=== PATIENT | female | born 1955 | race Caucasian/White ===

== ENCOUNTER → 2018-03-18 | Outpatient (CLI) | payer SELFPAY ==
--- NOTE | 2018-03-18 10:55 | US ---
EXAMINATION TYPE: US abdomen complete DATE OF EXAM: 03/18/2018 COMPARISON: NONE CLINICAL HISTORY: R10.84 abdominal pain, R19.7 Diarrhea. GB removed 2003. Abdominal bloating with di scomfort. EXAM MEASUREMENTS: Liver Length: 17.8 cm CHD: 0.5 cm Spleen: 15.8 cm Right Kidney: 11.6 x 5.4 x 5.5 cm Left Kidney: 10.4 x 5.8 x 4.9 cm Pancreas: Appears echogenic. Body = 1.9 cm Liver: wnl Gallbladder: Surgically absent Evidence for sonographic Brown's sign: neg CBD: Obscured by overlying bowel gas CHD: wnl Spleen: Appears enlarged Right Kidney: wnl Left Kidney: wnl Upper IVC: wnl Abd Aorta: Portions obscured by overlying bowel gas The liver is homogenous. The intrahepatic portion of the IVC and proximal abdominal aorta are within normal limits. There is no evidence of cholelithiasis. Common bile duct is unremarkable. The visu alized portions of the pancreas are free of mass. Kidneys are symmetric and free of hydronephrosis. No renal lesions are seen. IMPRESSION: 1. Spleen is enlarged. 2. Otherwise grossly unremarkable study.
--- NOTE | 2018-03-18 11:03 | US ---
EXAMINATION TYPE: US pelvic complete DATE OF EXAM: 03/18/2018 COMPARISON: NONE CLINICAL HISTORY: Generalized pain, diarrhea. Discomfort. No spotting. [employer]. Hx of tubes tied. TECHNIQUE: Transabdominal (TA). Date of LMP: CHECK[employer], EXAM MEASUREMENTS: Uterus: 6.7 x 4.3 x 2.6 cm Endometrial Stripe: 0.2 cm Right Ovary: 2.3 x 1.7 x 1.5 cm Left Ovary: 2.2 x 1.9 x 1.5 cm 1. Uterus: Anteverted Heterogenous. 2. Endometrium: wnl 3. Right Ovary: wnl 4. Left Ovary: wnl 5. Bilateral Adnexa: wnl 6. Posterior cul-de-sac: no free fluid Cervix- wnl IMPRESSION: 1. No discrete abnormality identified.
== END | disposition home or self-care (01) ==
LOC: RADUSWWP 09:27
PROVIDERS: ATTEND Family Medicine
DX: R16.1 Splenomegaly, not elsewhere classified (principal); R19.7 Diarrhea, unspecified; R10.84 Generalized abdominal pain
CPT/HCPCS: 76700; 76856

== ENCOUNTER 2020-10-17 07:29 | Day surgery (SDC) | payer MEDICARE ==
[2020-10-14 14:28] VITALS: BMI 42.8
[~2020-10-17 07:29] MED LIST: LACTATED RINGERS 1,000 ML IV SCH
[2020-10-17 07:55] VITALS: RESP 16; TEMP 97.4
[2020-10-17] MEDS ORDERED: LIDOCAINE 1% (10MG/ML) FOR IV START INTRADERMA ONE (08:03)
[2020-10-17] MEDS ORDERED: GLYCOPYRROLATE 0.2 MG/ML 2 ML VIAL ONE (08:12)
[2020-10-17] MEDS ORDERED: PROPOFOL 10 MG/ML 20 ML VIAL IV ONE (08:12)
--- NOTE | 2020-10-17 09:04 | P.PCN ---
Date of Procedure: 10/17/20 Description of Procedure: BRIEF HISTORY: Patient is a 65-year-old female presenting for outpatient colonoscopy for screening for malignant neoplasm in the colon. No family history of colon cancer. No blood per rectum. Last colonoscopy 6 years ago. PROCEDURE PERFORMED: Colonoscopy with polypectomy. PREOPERATIVE DIAGNOSIS: Screening for malignant neoplasm of the colon, last colonoscopy 6 years ago. ESTIMATED BLOOD LOSS: Minimal. IV sedation per Anesthesia. PROCEDURE: After informed consent was obtained, the patient, was brought into the endoscopy unit. IV sedation was administered by Anesthesia under continuous monitoring. Digital rectal examination was normal. Initially the Olympus CF-190 flexible video colonoscope was then inserted in the rectum, gradually advanced into the cecum without any difficulty. Careful examination was performed as the scope was gradually being withdrawn. Ileocecal valve and the appendiceal orifice were visualized and appeared normal. Prep was fair with liquid stool throughout and stool balls likely secondary to diverticulosis. Mucosa of the cecum, ascending colon, transverse colon, descending colon, sigmoid colon, and rectum appeared normal. 2 diminutive polyps measuring 2-3 mm in size removed from ileocecal valve and ascending colon with cold forcep polypectomy. 3 sessile polyps removed with cold snare polypectomy from the hepatic flexure measuring 6 mm, from the sigmoid colon measuring 5 mm and from the rectum measuring 4 mm. Pedunculated splenic flexure polyp removed with hot snare polypectomy measuring 13 mm in size. Numerous small and large mouth diverticula noted in the left colon. Retroflexion was performed in the rectum and no lesions were seen. The patient tolerated the procedure well. IMPRESSION: Pedunculated splenic flexure polyp removed with hot snare polypectomy. Cold snare polypectomy of medium-sized polyps from the hepatic flexure, sigmoid and rectum. Diminutive polyps removed with cold forcep polypectomy from the ileocecal valve and ascending colon. Severe left colonic diverticulosis. RECOMMENDATIONS: Findings of this examination were discussed with the patient and her family. Okay to resume diet, recommend fiber supplementation. Okay to resume medications. Await pathology from polypectomy. Recommend repeat colonoscopy in 1 year due to poor prep and high-risk colon polyp.
[2020-10-17 09:29] VITALS: BP 113/73; PULSE 69
== END 2020-10-17 09:45 | disposition home or self-care (01) ==
LOC: ORWHC2ENDO 07:29
PROVIDERS: ATTEND Internal Medicine
DX: Z12.11 Encounter for screening for malignant neoplasm of colon (principal); D12.2 Benign neoplasm of ascending colon; D12.3 Benign neoplasm of transverse colon; K57.30 Diverticulosis of large intestine without perforation or abscess without bleeding; Z90.49 Acquired absence of other specified parts of digestive tract; Z98.51 Tubal ligation status; E66.01 Morbid (severe) obesity due to excess calories; Z68.41 Body mass index [BMI] 40.0-44.9, adult; Z98.890 Other specified postprocedural states; F32.9 Major depressive disorder, single episode, unspecified; Z79.1 Long term (current) use of non-steroidal anti-inflammatories (NSAID); Z79.899 Other long term (current) drug therapy; Z88.0 Allergy status to penicillin; Z88.2 Allergy status to sulfonamides
CPT/HCPCS: 88305; 45380; 45385; J2704

== ENCOUNTER → 2021-02-05 | Outpatient (CLI) | payer MEDICARE ==
--- NOTE | 2021-02-05 15:05 | XR ---
EXAMINATION TYPE: XR shoulder complete RT DATE OF EXAM: 02/05/2021 COMPARISON: NONE HISTORY: Pain TECHNIQUE: Shoulder examined in 3 views FINDINGS: The humeral head articulates with the glenoid. The acromio-clavicular junction is normal. No acute fractures or dislocations are evident. A follow up study can be performed 7-10 days from acute trauma for continued pain. IMPRESSION: 1. Normal three-view right Shoulder
== END | disposition home or self-care (01) ==
LOC: RADXRYALE 14:28
PROVIDERS: ATTEND Family Medicine
DX: M25.511 Pain in right shoulder (principal); M79.621 Pain in right upper arm

== ENCOUNTER → 2022-04-08 | Outpatient (CLI) | payer MEDICARE ==
[~2022-04-08] MED LIST changes: -LACTATED RINGERS 1,000 ML IV SCH; +TIXAGEVIMAB/CILGAVIMAB (EUA) 300 MG/3 ML COMBO.PKG IM NR
[2022-04-08 11:06] VITALS: RESP 16; TEMP 98
[2022-04-08 11:56] VITALS: BP 108/64; PULSE 73
== END ==
LOC: PROCWHC3 10:50
PROVIDERS: ATTEND Internal Medicine Hematology & Oncology
DX: C91.10 Chronic lymphocytic leukemia of B-cell type not having achieved remission (principal); Z23 Encounter for immunization; Z88.0 Allergy status to penicillin; Z88.2 Allergy status to sulfonamides
CPT/HCPCS: Q0220; M0220

== ENCOUNTER 2023-07-11 08:35 | Emergency (ER) | payer MEDICARE ==
[2023-07-11] MEDS ORDERED: KETOROLAC 15 MG/ML 1 ML VIAL IVP STA (08:58)
[2023-07-11] MEDS ORDERED: SODIUM CHLORIDE 0.9% 500 ML 500 ML IV STA (08:58)
--- NOTE | 2023-07-11 09:04 | ED ---
Abdominal Pain HPI - General Chief Complaint: Abdominal Pain Stated Complaint: Abd Pain Time Seen by Provider: 07/11/23 08:49 Source: patient, RN notes reviewed, old records reviewed Mode of arrival: ambulatory Limitations: no limitations - History of Present Illness Initial Comments: 68-year-old female presents to the emergency room with complaints of left upper quadrant abdominal pain since Wednesday. Has not had a bowel movement in 4 days. Last bowel movement was Wednesday. She did see her primary care doctor on Wednesday and was diagnosed with shingles, rash to back left side and prescribed gabapentin and acyclovir. Patient continues to have pain left upper quadrant. Denies fevers. No shortness of breath or chest pain. She is concerned with a bowel obstruction however states is passing gas. Patient does have a history of cholecystectomy, CLL MD Complaint: abdominal pain (LUQ) -: days(s) (7) Location: LUQ Radiation: back Severity scale (1-10): 10 Quality: stabbing, sharp Consistency: intermittent Context: other (dx shingles left back thoracic Wednesday started acyclovir and gabapentin) Associated Symptoms: constipation - Related Data Home Medications Medication Instructions Recorded Confirmed Cholecalciferol [Vitamin D3 (25 2,000 unit PO DAILY 10/14/20 10/17/20 Mcg = 1000 Iu)] Citalopram Hydrobromide 40 mg PO DAILY 10/14/20 10/17/20 [Citalopram HBr] Multivitamins, Thera [Multivitamin 1 tab PO DAILY 10/14/20 10/17/20 (formulary)] Naproxen Sodium [Aleve] 220 mg PO DAILY 10/14/20 10/17/20 Allergies Allergy/AdvReac Type Severity Reaction Status Date / Time Penicillins Allergy Rash/Hives Verified 07/11/23 08:44 Sulfa (Sulfonamide Allergy Nausea & Verified 07/11/23 08:44 Antibiotics) Vomiting Review of Systems ROS Statement: Those systems with pertinent positive or pertinent negative responses have been documented in the HPI. ROS Other: All systems not noted in ROS Statement are negative. Past Medical History Past Medical History: Cancer Additional Past Medical History / Comment(s): diverticulosis. chronic lymphocytic leukemia dx [address] patel History of Any Multi-Drug Resistant Organisms: None Reported Past Surgical History: Back Surgery, Cholecystectomy, Tubal Ligation Past Anesthesia/Blood Transfusion Reactions: Postoperative Nausea & Vomiting (PONV) Additional Past Anesthesia/Blood Transfusion Reaction / Comment(s): positional vertigo Past Psychological History: Depression Smoking Status: Former smoker Past Alcohol Use History: None Reported Past Drug Use History: Marijuana General Exam Limitations: no limitations General appearance: alert, in no apparent distress Head exam: Present: atraumatic Eye exam: Present: normal appearance. Absent: scleral icterus, conjunctival injection, periorbital swelling Neck exam: Present: full ROM Respiratory exam: Present: normal lung sounds bilaterally. Absent: respiratory distress, accessory muscle use Cardiovascular Exam: Present: regular rate, normal rhythm GI/Abdominal exam: Present: soft, normal bowel sounds. Absent: distended, tenderness, guarding, rebound, rigid Extremities exam: Present: full ROM, normal capillary refill. Absent: pedal edema Back exam: Present: full ROM, rash noted (Vesicular rash left thoracic appro ximately 2 cm x 2 cm). Absent: paraspinal tenderness, vertebral tenderness Neurological exam: Present: alert, oriented X3, normal gait Psychiatric exam: Present: normal affect, normal mood Skin exam: Present: warm, dry, normal color. Absent: cyanosis, diaphoretic, petechiae, pallor Course Vital Signs 07/11/23 07/11/23 08:41 12:01 Temperature 98.9 F 97.9 F Pulse Rate 79 82 Respiratory 20 18 Rate Blood Pressure 139/65 140/88 O2 Sat by Pulse 95 99 Oximetry Medical Decision Making - Medical Decision Making Was pt. sent in by a medical professional or institution (, PA, TECHNOLOGY SPECIALIST, urgent care, hospital, or snf...) When possible be specific @ -No Did you speak to anyone other than the patient for history (EMS, parent, family, police, friend...)? What history was obtained from this source @ -No Did you review nursing and triage notes (agree or disagree)? Why? @ -I reviewed and agree with nursing and triage notes Were old charts reviewed (outside hosp., previous admission, EMS record, old EKG, old radiological studies, urgent care reports/EKG's, snf records)? Report findings @ -No old charts were reviewed Differential Diagnosis (chest pain, altered mental status, abdominal pain women, abdominal pain men, vaginal bleeding, weakness, fever, dyspnea, syncope, headache, dizziness, GI bleed, back pain, seizure, CVA, palpatations, mental health, musculoskeletal)? @ -Differential Abdominal Pain Women: Appendicitis, Cholecystitis, diverticulosis, ischemic bowel, pancreatitis, hepat itis, UTI, gastroenteritis, AAA, incarcerated hernia, bowel obstruction, constipation, inflammatory bowel, hepatitis, peptic ulcer disease, splenic infarction, perforated viscus, vulvitis, ovarian torsion, PID, kidney stone, placenta abruption, this is not meant to be an all-inclusive list EKG interpreted by me (3pts min.). @ -n/a X-rays interpreted by me (1pt min.). @ -yes X-ray KUB interpreted by me shows no evidence of obstruction, no free air. CT interpreted by me (1pt min.). @ -No CT the abdomen shows moderate sigmoid diverticulosis without diverticulitis. Splenomegaly. U/S interpreted by me (1pt. min.). @ -None done What testing was considered but not performed or refused? (CT, X-rays, U/S, labs)? Why? @ -None What meds were considered but not given or refused? Why? @ -None Did you discuss the management of the patient with other professionals (professionals i.e. , PA, TECHNOLOGY SPECIALIST, lab, RT, psych nurse, social work assistant, automotive engineering technician, t eacher, property officer, director of casework)? Give summary @ -No Was smoking cessation discussed for >3mins.? @ -No Was critical care preformed (if so, how long)? @ -No Were there social determinants of health that impacted care today? How? (Homelessness, low income, unemployed, alcoholism, drug addiction, transportation, low edu. Level, literacy, decrease access to med. care, group home, rehab)? @ -No Was there de-escalation of care discussed even if they declined (Discuss DNR or withdrawal of care, Hospice)? DNR status @ -No What co-morbidities impacted this encounter? (DM, HTN, Smoking, COPD, CAD, Cancer, CVA, ARF, Chemo, Hep., AIDS, mental health diagnosis, sleep apnea, morbid obesity)? @ -Patient has a history of CLL in [address] Patel Also has a history of diverticulosis, surgical history of cholecystectomy, back surgery Was patient admitted / discharged? Hospital course, mention meds given and route, prescriptions, significant lab abnormalities, going to OR and other pertinent info. @ -Discharged 68-year-old female presents to the emergency room with complaints of left upper quadrant abdominal pain since Wednesday. Has not had a bowel movement in 4 days. Last bowel movement was Wednesday. She did see her primary care doctor on Wednesday and was diagnosed with shingles, rash to back left side and prescribed gabapentin and acyclovir. Patient continues to have pain left upper quadrant. Denies fevers. No shortness of breath or chest pain. She is concerned with a bowel obstruction however states is passing gas. Patient does have a history of cholecystectomy, CLL On physical exam abdomen is soft. Bowel sounds are present. Vesicular rash approximate 2 x 2 centimeter area on the left flank. Lungs sounds are clear to auscultation. Vital signs are stable. X-ray KUB interpreted by me shows no evidence of obstruction, no free air. Radiologist interpretation overall nonobstructive bowel gas pattern. Gas and fecal matter seen in the nondistended colon. EKG interpreted by me shows sinus rhythm with a ventricular rate of 63, MN interval 0.153, QRS 0.100, QTC 0.418, normal axis White blood cell count 22.1, patient is a history of CLL. No concerning values in electrolytes. Troponin -0.012, lactic acid 0.8. Patient had resolution of her pain with Toradol. Her pain may be related to neuralgia from shingles. Directed to continue taking her gabapentin and acyclovir. Follow up with her primary care doctor this week. She is agreeable to this plan of care. Case discussed with Dr. Rausch Undiagnosed new problem with uncertain prognosis? @ -No Drug Therapy requiring intensive monitoring for toxicity (Heparin, Nitro, Insulin, Cardizem)? @ -No Were any procedures done? @ -No Diagnosis/symptom? @ -Abdominal pain, shingles Acute, or Chronic, or Acute on Chronic? @ -Acute Uncomplicated (without systemic symptoms) or Complicated (systemic symptoms)? @ -uncomplicated Side effects of treatment? @ -No Exacerbation, Progression, or Severe Exacerbation? @ -No Poses a threat to life or bodily function? How? (Chest pain, USA, MT, pneumonia, PE, COPD, DKA, ARF, appy, cholecystitis, CVA, Diverticulitis, Homicidal, Suicidal, threat to staff... and all critical care pts) @ -No - Lab Data Result diagrams: 07/11/23 09:19 07/11/23 09:19 Lab Results 07/11/23 07/11/23 07/11/23 Range/Units 09:19 09:19 09:19 WBC 22.1 H (3.8-10.6) k/uL RBC 5.12 (3.80-5.40) m/uL Hgb 14.4 (11.4-16.0) gm/dL Hct 44.2 (34.0-46.0) % MCV 86.4 (80.0-100.0) fL MCH 28.1 (25.0-35.0) pg MCHC 32.5 (31.0-37.0) g/dL RDW 15.7 H (11.5-15.5) % Plt Count 185 (150-450) k/uL MPV 7.4 Neutrophils % 17 % Lymphocytes % 77 % Monocytes % 2 % Eosinophils % 1 % Basophils % 1 % Neutrophils # 3.8 (1.3-7.7) k/uL Lymphocytes # 17.1 H (1.0-4.8) k/uL Monocytes # 0.3 (0-1.0) k/uL Eosinophils # 0.2 (0-0.7) k/uL Basophils # 0.1 (0-0.2) k/uL Manual Slide Review Performed Reactive Lymphocytes Present PT 9.9 (9.0-12.0) sec INR 0.9 (<1.2) APTT 25.4 (22.0-30.0) sec Sodium 139 (137-145) mmol/L Potassium 4.2 (3.5-5.1) mmol/L Chloride 108 H (98-107) mmol/L Carbon Dioxide 21 L (22-30) mmol/L Anion Gap 10 mmol/L BUN 23 H (7-17) mg/dL Creatinine 0.75 (0.52-1.04) mg/dL Est GFR (CKD-EPI)AfAm >90 (>60 ml/min/1.73 sqM) Est GFR (CKD-EPI)NonAf 82 (>60 ml/min/1.73 sqM) Glucose 110 H (74-99) mg/dL Plasma Lactic Acid Jc (0.7-2.0) mmol/L Calcium 9.7 (8.4-10.2) mg/dL Total Bilirubin 0.6 (0.2-1.3) mg/dL AST 21 (14-36) U/L ALT 21 (4-34) U/L Alkaline Phosphatase 66 (38-126) U/L Troponin I (0.000-0.034) ng/mL Total Protein 6.6 (6.3-8.2) g/dL Albumin 4.6 (3.5-5.0) g/dL Amylase 55 (30-110) U/L Lipase 89 (23-300) U/L 07/11/23 07/11/23 Range/Units 09:19 09:19 WBC (3.8-10.6) k/uL RBC (3.80-5.40) m/uL Hgb (11.4-16.0) gm/dL Hct (34.0-46.0) % MCV (80.0-100.0) fL MCH (25.0-35.0) pg MCHC (31.0-37.0) g/dL RDW (11.5-15.5) % Plt Count (150-450) k/uL MPV Neutrophils % % Lymphocytes % % Monocytes % % Eosinophils % % Basophils % % Neutrophils # (1.3-7.7) k/uL Lymphocytes # (1.0-4.8) k/uL Monocytes # (0-1.0) k/uL Eosinophils # (0-0.7) k/uL Basophils # (0-0.2) k/uL Manual Slide Review Reactive Lymphocytes PT (9.0-12.0) sec INR (<1.2) APTT (22.0-30.0) sec Sodium (137-145) mmol/L Potassium (3.5-5.1) mmol/L Chloride (98-107) mmol/L Carbon Dioxide (22-30) mmol/L Anion Gap mmol/L BUN (7-17) mg/dL Creatinine (0.52-1.04) mg/dL Est GFR (CKD-EPI)AfAm (>60 ml/min/1.73 sqM) Est GFR (CKD-EPI)NonAf (>60 ml/min/1.73 sqM) Glucose (74-99) mg/dL Plasma Lactic Acid Jc 0.8 (0.7-2.0) mmol/L Calcium (8.4-10.2) mg/dL Total Bilirubin (0.2-1.3) mg/dL AST (14-36) U/L ALT (4-34) U/L Alkaline Phosphatase (38-126) U/L Troponin I <0.012 (0.000-0.034) ng/mL Total Protein (6.3-8.2) g/dL Albumin (3.5-5.0) g/dL Amylase (30-110) U/L Lipase (23-300) U/L - EKG Data -: EKG Interpreted by Wi EKG shows normal: sinus rhythm (EKG interpreted by me shows sinus rhythm with a ventricular rate of 63, MN interval 0.153, QRS 0.100, QTC 0.418, normal axis) Disposition Clinical Impression: Abdominal pain, Shingles outbreak Disposition: HOME SELF-CARE Condition: Good Instructions (If sedation given, give patient instructions): Shingles (ED), Abdominal Pain (ED) Additional Instructions: Continue your previously prescribed medications for shingles. Follow-up with your primary care doctor this week. Return to the emergency room with any new or concerning symptoms. Is patient prescribed a controlled substance at d/c from ED?: No Referrals: Stefan Valdes DO [Primary Care Provider] - 1-2 days Time of Disposition: 11:38
--- NOTE | 2023-07-11 09:37 | XR ---
EXAMINATION TYPE: XR KUB DATE OF EXAM: 07/11/2023 COMPARISON: NONE HISTORY: Pain TECHNIQUE: Single supine KUB image of the abdomen is obtained FINDINGS: Small bowel demonstrates no evidence for dilatation or air fluid levels. Gas and fecal material is seen in non-distended colon. No convincing evidence for pneumoperitoneum. No unusual calcifications. The lung bases are clear. The osseous structures are intact. IMPRESSION: 1. Overall nonobstructive bowel gas pattern.
[2023-07-11 09:44] LABS: ALT 21 U/L (4-34); AST 21 U/L (14-36); African American GFR (CKD) >90 (>60 ml/min/1.73 sqM); Albumin 4.6 g/dL (3.5-5.0); Alkaline Phosphatase 66 U/L (38-126); Amylase 55 U/L (30-110); Anion Gap 10 mmol/L; Blood Urea Nitrogen 23 mg/dL (7-17); Calcium 9.7 mg/dL (8.4-10.2); Carbon Dioxide 21 mmol/L (22-30); Chloride 108 mmol/L (98-107); Glucose 110 mg/dL (74-99); Lipase 89 U/L (23-300); Non-African American GFR(CKD) 82 (>60 ml/min/1.73 sqM); Potassium 4.2 mmol/L (3.5-5.1); Sodium 139 mmol/L (137-145); Total Bilirubin 0.6 mg/dL (0.2-1.3); Total Protein 6.6 g/dL (6.3-8.2)
[2023-07-11 09:47] LABS: Basophils # (A) 0.1 k/uL (0-0.2); Basophils % (A) 1 %; Eosinophils # (A) 0.2 k/uL (0-0.7); Eosinophils % (A) 1 %; HCT 44.2 % (34.0-46.0); HGB 14.4 gm/dL (11.4-16.0); Lymphocytes % (A) 77 %; MCH 28.1 pg (25.0-35.0); MCHC 32.5 g/dL (31.0-37.0); MCV 86.4 fL (80.0-100.0); Mean Platelet Volume 7.4; Monocytes # (A) 0.3 k/uL (0-1.0); Monocytes % (A) 2 %; Neutrophils # (A) 3.8 k/uL (1.3-7.7); Neutrophils % (A) 17 %; Platelet Count 185 k/uL (150-450); RBC 5.12 m/uL (3.80-5.40); RDW 15.7 % (11.5-15.5); WBC 22.1 k/uL (3.8-10.6)
[2023-07-11 09:48] LABS: INR 0.9 (<1.2); Lymphocytes # (A) 17.1 k/uL (1.0-4.8); Partial Thromboplastin Time 25.4 sec (22.0-30.0); Prothrombin Time 9.9 sec (9.0-12.0)
--- NOTE | 2023-07-11 11:12 | CT ---
EXAMINATION TYPE: CT abdomen pelvis w con DATE OF EXAM: 07/11/2023 COMPARISON: HISTORY: Left upper quadrant pain CT DLP: 2355 mGycm CONTRAST: CT scan of the abdomen and pelvis is performed without Oral Contrast and with IV Contrast, patient in jected with 100 mL of Isovue 300. FINDINGS: LUNG BASES-: No visible nodule. No infiltrate. LIVER/GB: Gallbladder is surgically absent. There is mild hepatic steatosis suggested. No space occup jameson hepatic lesion. Biliary tree is of normal caliber. PANCREAS: No inflammation. No distinct mass. SPLEEN: There is evidence of splenomegaly measuring 15.9 cm craniocaudal dimension. No lesion seen. ADRENALS: No nodule. No thickening. KIDNEYS/BLADDER: No hydronephrosis. No nephrolithiasis. No distinct renal mass. Urinary bladder g rossly unremarkable. BOWEL: Normal appendix. Normal bowel caliber. No inflammation. Moderate sigmoid diverticulosis with out diverticulitis. GENITAL ORGANS: No gross abnormality. LYMPH NODES: No greater than 1cm abdominal or pelvic lymph nodes are appreciated. AORTA: No significant abnormality. OSSEOUS STRUCTURES: No significant abnormality is seen. OTHER: Small fat-containing umbilical hernia. IMPRESSION: 1. Moderate sigmoid diverticulosis without diverticulitis. 2. Splenomegaly.
[2023-07-11 11:40] LABS: Reactive Lymphocytes Present
[2023-07-11 12:02] VITALS: BP 140/88; PULSE 82; RESP 18; TEMP 97.9
== END 2023-07-11 12:02 | disposition home or self-care (01) ==
LOC: EC 08:35
DX: K57.30 Diverticulosis of large intestine without perforation or abscess without bleeding (principal); B02.9 Zoster without complications; F32.A Depression, unspecified; F12.90 Cannabis use, unspecified, uncomplicated; Z88.0 Allergy status to penicillin; Z88.2 Allergy status to sulfonamides; Z79.899 Other long term (current) drug therapy; Z90.49 Acquired absence of other specified parts of digestive tract; Z87.891 Personal history of nicotine dependence
CPT/HCPCS: 36415; 93005; 80053; 82150; 83605; 83690; 84484; 85025; 85610; 85730; 74018; 74177; 99284; 96374; 96361; J1885; Q9967

== ENCOUNTER → 2023-09-17 | Outpatient (CLI) | payer MEDICARE ==
--- NOTE | 2023-09-17 16:05 | US ---
EXAMINATION TYPE: US thyroid st tissue head/neck DATE OF EXAM: 09/17/2023 COMPARISON: NONE CLINICAL INDICATION: Female, 68 years old with history of E04.1 NONTOXIC SINGLE THYROID NODULE; Pt st ates DrLin felt neck enlarged GLAND SIZE: Right Lobe: 7.4 x 2.9 x 3.5 cm Overall Parenchyma: heterogenous Left Lobe: 5.9 x 1.7 x 2.3 cm Overall Parenchyma: homogeneous Isthmus Thickness: 0.5 cm NODULES RIGHT: # of nodules measured on right: 2 1. 4.8 X 2.9 x 2.9 cm, lower, solid or almost completely solid, isoechoic nodule, which is wider th an tall, with smooth margins, without echogenic foci. TR 3 Prior size: No prior 2. 0.9 X 0.7 x 1.0 cm, upper, solid or almost completely solid, hypoechoic nodule, which is wider t simeon tall, with smooth margins, without echogenic foci. Prior size: No prior LEFT: # of nodules measured on left: 1 1. 1.3 X 0.9 x 0.9 cm, lower, solid or almost completely solid, hypoechoic nodule, which is wider t simeon tall, with smooth margins, without echogenic foci. Prior size: No prior ISTHMUS: # of nodules measured in the isthmus: 0 Bilateral neck scanned, no evidence of lymphadenopathy. Multiple nodules bilaterally- two nodules ri ght lobe and multiple nodules scattered throughout left lobe- the largest nodule was measured. IMPRESSION: 1. Multiple bilateral thyroid nodules. 2. Largest nodule on the right considered mildly suspicious. Fine needle aspiration can be performed. 2017 ACR TI-RADS LEVEL: TR-RADS 3 - Mildly Suspicious: Follow if > 1.5 cm, FNA if > 2.5 cm *Highest TI-RADS level nodule reported
== END | disposition home or self-care (01) ==
LOC: RADUSWWP 14:21
PROVIDERS: ATTEND Otolaryngology
DX: E04.2 Nontoxic multinodular goiter (principal)
CPT/HCPCS: 76536

== ENCOUNTER 2023-12-01 12:57 | Day surgery (SDC) | payer MEDICARE ==
[2023-12-01 13:46] VITALS: RESP 16; TEMP 98.5
--- NOTE | 2023-12-01 14:27 | US ---
ULTRASOUND GUIDED FNA THYROID BIOPSY: CLINICAL HISTORY: Right thyroid nodule FINDINGS: The procedure was explained to the patient. The risks, complications, benefits and alternatives were discussed and any questions were answered. Informed consent was obtained. Patient was placed supin e on the ultrasound table and prepped and draped in the usual sterile fashion. Utilizing a 25 gauge needle, five passes were made into the requested right thyroid nodule. Patient was stable throughout the procedure. Pathology is pending. All elements of maximal barrier technique were utilized. IMPRESSION: 1. Successful ultrasound guided FNA thyroid biopsy.
[2023-12-01 14:36] VITALS: BP 123/63; PULSE 65
== END 2023-12-01 14:20 | disposition home or self-care (01) ==
LOC: RADPROMAIN 12:57
PROVIDERS: ATTEND Otolaryngology
DX: E04.1 Nontoxic single thyroid nodule (principal); C91.90 Lymphoid leukemia, unspecified not having achieved remission
CPT/HCPCS: 10005; 88173; 88305

== ENCOUNTER → 2023-12-01 | Outpatient (CLI) | payer MEDICARE ==
[2023-12-01 17:06] LABS: T4, Free (Free Thyroxine) 1.17 ng/dL (0.78-2.19)
== END | disposition home or self-care (01) ==
LOC: LABWHC1 14:37
PROVIDERS: ATTEND Otolaryngology
DX: E04.1 Nontoxic single thyroid nodule (principal)
CPT/HCPCS: 36415; 84439; 84443; 86376

== ENCOUNTER → 2024-02-09 | Outpatient (CLI) | payer MEDICARE ==
--- NOTE | 2024-02-09 21:17 | US ---
EXAMINATION TYPE: US kidneys/renal and bladder DATE OF EXAM: 02/09/2024 COMPARISON: CT 2022 CLINICAL INDICATION: Female, 68 years old with history of R31.1 HEMATURIA; Frequent UTI's EXAM MEASUREMENTS: Right Kidney: 11.4 x 4.8 x 5.8 cm Left Kidney: 11.8 x 5.1 x 5.9 cm Right Kidney: No hydronephrosis or masses seen Left Kidney: No hydronephrosis or masses seen Bladder: wnl Bilateral Jets seen: Yes IMPRESSION: No acute renal ultrasound abnormality.
== END | disposition home or self-care (01) ==
LOC: RADUSWWP 14:18
PROVIDERS: ATTEND Urology
DX: R31.1 Benign essential microscopic hematuria (principal); N39.0 Urinary tract infection, site not specified
CPT/HCPCS: 76770

== ENCOUNTER → 2024-09-19 | Outpatient (CLI) | payer MEDICARE ==
--- NOTE | 2024-09-20 15:50 | MM ---
Reason for Exam: Screening (asymptomatic). Patient History: Menarche at age 14. First Full-Term at age 25. Postmenopausal. Other cancer, age 54. Risk Values: Radha 5 year model risk: 1.7%. NCI Lifetime model risk: 5.1%. Prior Study Comparison: No prior studies available for comparison. Tissue Density: There are scattered areas of fibroglandular density. Findings: Analyzed By CAD. The pattern is symmetrical. There may be some chronic nodularity within the posterior right breast. Additional evaluation recommended with right breast diagnostic mammography. Left breast:No suspicious groups of microcalcifications, spiculated or lobular masses, architectural distortion or other secondary signs of malignancy are mammographically apparent. Overall Assessment: Incomplete: need additional imaging evaluation, BI-RAD 0 Management: Diagnostic Mammogram of the right breast. A negative mammogram report should not preclude additional follow up of suspicious palpable abnormalities. Patient should continue monthly self breast exam. A clinical breast exam by your physician is recommended on an annual basis and results should be correlated with mammographic findings. Note on Radha scores and lifetime risk: 1. A Radha score greater than 3% is considered moderate risk. If this is the case, consider specialist referral to assess eligibility for a risk reducing agent. 2. If overall lifetime risk for the development of breast cancer is 20% or higher, the patient may qualify for future screening with alternating mammogram and breast MRI. [facility], , 09/20/2024 3:46 PM. Electronically signed and approved by: Abrahan Camara D.O. Radiologis
== END | disposition home or self-care (01) ==
LOC: RADMAMWWP 14:43
PROVIDERS: ATTEND Family Medicine
DX: Z12.31 Encounter for screening mammogram for malignant neoplasm of breast (principal); R92.323 Mammographic fibroglandular density, bilateral breasts; Z78.0 Asymptomatic menopausal state
CPT/HCPCS: 77063; 77067

== ENCOUNTER → 2024-11-09 | Outpatient (CLI) | payer MEDICARE ==
--- NOTE | 2024-11-09 14:24 | MM ---
Reason for Exam: Additional evaluation requested from abnormal screening. Last screening mammogram was performed 1 month(s) ago. Patient History: Menarche at age 14. First Full-Term at age 25. Postmenopausal. Other cancer, age 54. Risk Values: Radha 5 year model risk: 1.7%. NCI Lifetime model risk: 5.1%. Tissue Density: Right: There are scattered areas of fibroglandular density. Findings: Analyzed By CAD. 7 mm focal asymmetry far posterior superior right breast becomes less defined and is low density on additional views. Findings suggest a benign etiology such as a tiny cyst. Short interval follow-up recommended. Overall Assessment: Probably benign, BI-RAD 3 Management: Diagnostic Mammogram of the right breast in 6 months. Results were given to the patient verbally at the time of exam. Patient should continue monthly self-breast exams. A clinical breast exam by your physician is recommended on an annual basis. This exam should not preclude additional follow-up of suspicious palpable abnormalities. Note on Radha scores and lifetime risk: 1. A Radha score greater than 3% is considered moderate risk. If this is the case, consider specialist referral to assess eligibility for a risk reducing agent. 2. If overall lifetime risk for the development of breast cancer is 20% or higher, the patient may qualify for future screening with alternating mammogram and breast MRI. [facility], , 11/09/2024 2:21 PM. Electronically signed and approved by: Erasto Masters M.D. Radiologist
== END | disposition home or self-care (01) ==
LOC: RADMAMWWP 13:55
PROVIDERS: ATTEND Family Medicine
DX: R92.8 Other abnormal and inconclusive findings on diagnostic imaging of breast (principal); Z78.0 Asymptomatic menopausal state; R92.321 Mammographic fibroglandular density, right breast
CPT/HCPCS: 77065; G0279; 77061